=== PATIENT | female | born 1970 | race Native Hawaiian/Other Pacific Islander ===

== ENCOUNTER 2016-12-22 09:38 | Outpatient (CLI) | payer OTHER | END 2016-12-22 20:16 | disposition home or self-care (01) | LOC: US 09:38 | DX: R94.5 Abnormal results of liver function studies (principal) ==

== ENCOUNTER 2017-03-29 13:13 | Outpatient (CLI) | payer OTHER | END 2017-03-29 19:17 | disposition home or self-care (01) | LOC: CT 13:13 | DX: R94.5 Abnormal results of liver function studies (principal); D86.89 Sarcoidosis of other sites | CPT/HCPCS: 36415; 82565; 84520; Q9963 ==

== ENCOUNTER 2018-04-13 13:14 | Outpatient (CLI) | payer OTHER | END 2018-04-13 19:49 | disposition home or self-care (01) | LOC: RAD 13:14 | DX: M47.816 Spondylosis without myelopathy or radiculopathy, lumbar region (principal) ==

== ENCOUNTER 2019-04-11 08:19 | Outpatient (CLI) | payer OTHER | END 2019-04-11 20:14 | disposition home or self-care (01) | LOC: RESP 08:19 | DX: Z12.31 Encounter for screening mammogram for malignant neoplasm of breast (principal); Z79.899 Other long term (current) drug therapy | CPT/HCPCS: 93306 ==

== ENCOUNTER 2019-04-23 15:27 | Outpatient (CLI) | payer OTHER | END 2019-04-23 21:17 | disposition home or self-care (01) | LOC: RAD 15:27 | DX: M32.8 Other forms of systemic lupus erythematosus (principal); M79.7 Fibromyalgia; R53.83 Other fatigue; R76.0 Raised antibody titer; Z79.899 Other long term (current) drug therapy ==

== ENCOUNTER 2022-03-29 15:47 | Outpatient (CLI) | payer OTHER ==
[2022-03-29 16:19] LABS: PLATELET COUNT 236 K/uL (152-353)
== END 2022-03-29 18:59 | disposition home or self-care (01) ==
LOC: LABW 15:47
DX: K74.3 Primary biliary cirrhosis (principal); R53.83 Other fatigue
CPT/HCPCS: 36415; 80076; 85027

== ENCOUNTER 2022-05-06 10:36 | Outpatient (CLI) | payer OTHER | END 2022-05-06 21:03 | disposition home or self-care (01) | LOC: MAMMO 10:36 | PROVIDERS: ATTEND Nurse Practitioner Family | DX: Z12.31 Encounter for screening mammogram for malignant neoplasm of breast (principal) ==

== ENCOUNTER 2022-07-14 11:11 | Outpatient (CLI) | payer OTHER ==
[2022-07-14 11:29] LABS: PLATELET COUNT 230 K/uL (152-353)
== END 2022-07-14 21:58 | disposition home or self-care (01) ==
LOC: LABW 11:11
PROVIDERS: ATTEND Nurse Practitioner Family
DX: R53.83 Other fatigue (principal); E83.52 Hypercalcemia
CPT/HCPCS: 36415; 83970; 85027

== ENCOUNTER 2022-08-16 08:01 | Outpatient (CLI) | payer OTHER | END 2022-08-16 19:34 | disposition home or self-care (01) | LOC: CT 08:01 | PROVIDERS: ATTEND Nurse Practitioner Family | DX: R51.9 Headache, unspecified (principal) ==

== ENCOUNTER 2023-02-08 08:59 | Outpatient (CLI) | payer OTHER | END 2023-02-08 18:52 | disposition home or self-care (01) | LOC: CT 08:59 → MAMMO 08:59 | PROVIDERS: ATTEND Physician Assistant | DX: N63.0 Unspecified lump in unspecified breast (principal); M54.2 Cervicalgia ==

== ENCOUNTER 2023-02-10 13:08 | Outpatient (CLI) | payer OTHER | END 2023-02-10 19:02 | disposition home or self-care (01) | LOC: MAMMO 13:08 | PROVIDERS: ATTEND Physician Assistant | DX: N63.0 Unspecified lump in unspecified breast (principal); N64.59 Other signs and symptoms in breast | CPT/HCPCS: G0279 ==